=== PATIENT | male | born 1975 | race Caucasian/White ===

== ENCOUNTER 2021-09-06 23:33 | Inpatient (IN) | payer OTHER ==
[~2021-09-06] VITALS: Ht 177.8 cm; Wt 97.5 kg
[2021-09-07 00:14] LABS: BASOPHILS ABSOLUTE AUTO 0.06 K/mm3 (0.00-0.23); BASOPHILS PERCENT AUTO 0 % (0-2); EOSINOPHILS ABSOLUTE AUTO 0.06 K/mm3 (0.00-0.68); EOSINOPHILS PERCENT AUTO 0 % (0-6); Hematocrit 42.2 % (37.0-53.0); Hemoglobin 14.8 g/dL (13.5-17.5); IMMATURE GRAN ABSOLUTE AUTO 0.06 K/mm3 (0.00-0.10); IMMATURE GRAN PERCENT AUTO 0 % (0-1); LYMPHOCYTES ABSOLUTE AUTO 1.24 K/mm3 (0.84-5.20); LYMPHOCYTES PERCENT AUTO 7 % (21-46); MONOCYTES ABSOLUTE AUTO 1.67 K/mm3 (0.16-1.47); MONOCYTES PERCENT AUTO 10 % (4-13); Mean Corpuscular HGB Conc 35.1 g/dL (31.5-36.5); Mean Corpuscular Volume 91 fL (80-100); Mean Platelet Volume 9.6 fL (9.1-12.4); NEUTROPHILS ABSOLUTE AUTO 14.25 K/mm3 (1.96-9.15); NEUTROPHILS PERCENT AUTO 82 % (41-73); Platelet Count 240 K/mm3 (150-400); RDW Coefficient Variation 11.7 % (11.7-14.2); Red Blood Cell Count 4.63 M/mm3 (4.30-5.90); White Blood Cell Count 17.34 K/mm3 (4.00-11.30)
[2021-09-07 00:33] LABS: Alanine Aminotransfer (ALT/SGP 61 U/L (12-78); Albumin, Blood 4.3 g/dL (3.4-5.0); Albumin/Globulin Ratio 1.1 (0.8-1.8); Alk Phos 53 U/L (50-136); Anion Gap 8 mmol/L (6-16); Aspartate Aminotrans (AST/SGOT 24 U/L (12-37); Bilirubin, Total 0.7 mg/dL (0.1-1.0); Blood Urea Nitrogen 17 mg/dL (8-24); Bun/Creatinine Ratio 17.5 (12.0-20.0); CO2, Blood 29 mmol/L (21-32); Chloride, Blood 100 mmol/L (98-108); Creatinine, Blood 0.97 mg/dL (0.60-1.20); Glomerular Filtration Rate >60 (60-); Glucose, Blood 125 mg/dL (70-99); Potassium, Blood 4.1 mmol/L (3.5-5.5); Sodium, Blood 137 mmol/L (136-145); Total Protein, Blood 8.3 g/dL (6.4-8.2)
--- NOTE | 2021-09-07 04:45 | NUR ---
SHIFT SUMMARY PT NEW ED ADMIT THIS EVENING. ADM DX OF PERITONSILLAR ABSCESS. NO VISIBLE SWELLING. PT DOES REPORT RAIN TO R THROAT. MEDICATED WITH TORADOL JUST BEFORE ADMISSION IN ED. PT REPORTS SOME RELIEF. ENT CONSULT. ANS SERVICE NOTIFIED BY LINEN ROOM SUPERVISOR STACEY. PT DENIES NEEDS AT THIS TIME. VITAL SIGNS STABLE.
[2021-09-07] MEDS ORDERED: Acetaminophen650 M1 PO (13:50)
[2021-09-07] MEDS ORDERED: AMOCLA875 PO (13:51)
[2021-09-07] MEDS ORDERED: IBUP600 PO (13:51)
[2021-09-07] MEDS ORDERED: VISBIOME 112.51 EACH PO (13:53)
--- NOTE | 2021-09-07 14:51 | NUR ---
PT AWAKE AT START OF SHIFT, OOB AND AMBULATING TO BTHRM INDEPENDENTLY. PT A&O, VERY PLEASANT AND CO-OP. ADMITTED FOR PERITONSILLAR ABSCESS, RECEIVING IV ABX. CONSULT CALLED TO DR VENCES BY NOC SHIFT. DR WASHINGTON IN TO SEE PT THIS AM; PT ABLE TO EAT AND DRINK WELL WITHOUT DIFFICULTY. DR VENCES LATER IN TO SEE PT. ABSCESS ASPIRATED BY DR VENCES AT BS; PT TOLERATED WELL. VERBAL ORDER FOR STEROID TO BE ORDERED X1. DR VENCES TO CALL DR WASHINGTON TO CLEAR PT FOR D/C AND PT TO F/U OUTPT. IV ABX GIVEN BEFORE D/C. MEDS FAXED TO [facility] PER PT REQUEST. IV SITE D/C'D AFTER ABX COMPLETE. D/C INSTRUCTIONS REVIEWED WITH PT. DENIED FURTHER NEEDS. PT ASSISTED OUT TO FAMILY CAR VIA W/C.
== END 2021-09-07 14:38 | disposition home or self-care (01) | DRG 872 ==
LOC: ER 23:33 → MEDS 09-07 03:10
PROVIDERS: Physician Assistant; ADMIT Family Medicine
PROC: 0C9P3ZZ Drainage of Tonsils, Percutaneous Approach (ICD-10-PCS; principal; 2021-09-07)
PROC: 3E03329 Introduction of Other Anti-infective into Peripheral Vein, Percutaneous Approach (ICD-10-PCS; 2021-09-07)
DX: A41.9 Sepsis, unspecified organism (principal); J36 Peritonsillar abscess; F10.10 Alcohol abuse, uncomplicated; Z71.41 Alcohol abuse counseling and surveillance of alcoholic; Z28.21 Immunization not carried out because of patient refusal; Z87.891 Personal history of nicotine dependence; Z90.49 Acquired absence of other specified parts of digestive tract
CPT/HCPCS: 10160; 36415; 70491; 80053; 83605; 85025; 87040; 96365; 96375; 96376; 99285; A9270; J0295; J1100; J1885; J2270; J2405; J2930; J7030; J7050; Q9967